=== PATIENT | male | born 1960 | race Caucasian/White ===

== ENCOUNTER 2022-02-20 17:00 | Emergency (ER) | payer OTHER, SELFPAY ==
[2022-02-20] VITALS (10 sets, daily range): BP systolic 119–148; BP diastolic 89–109; PULSE 60–72; RESP 13–16; TEMP 36.4; O2SAT 93–95; BMI 36.5
--- NOTE | 2022-02-20 17:48 | CRLHL7_ITS ---
For Patients: As a result of the Century Cures Act, medical imaging exams and procedure reports are released immediately into your electronic medical record. You may view this report before your referring provider. If you have questions, please contact your health care provider. CHEST 1 VIEW INDICATION: Short of breath IMPRESSION: Overpenetrated athletic monitor leads present. Normal heart size and vascular pattern. Lungs are clear of focal opacities. No pneumothorax or pleural abnormality. Dictated by Donald Chavira MD @ 02/20/2022 6:37:51 PM (Electronically Signed)
[2022-02-20 17:59] LABS: Basophils Absolute Auto 0.05 K/uL (0.00-0.30); Basophils Percent Auto 0.7 % (0.0-3.0); Eosinophils Absolute Auto 0.11 K/uL (0.00-0.50); Eosinophils Percent Auto 1.5 % (0.0-7.0); Hemoglobin* 16.4 gm/dL (13.5-17.5); Immature Granulocytes Abs Auto 0.01 K/uL (0.00-0.30); Lymphocytes Absolute Auto 1.68 K/uL (0.90-2.90); Lymphocytes Percent Auto 22.7 % (20-44); Mean Corpuscular HGB Conc 35 gm/dL (32-36); Mean Corpuscular Hemoglobin 30 pg (26-34); Mean Corpuscular Volume 87 fL (80-100); Monocytes Percent Auto 7.8 % (0.0-11.0); Neutrophils Absolute Auto 4.97 K/uL (1.7-7.0); Neutrophils Percent Auto 67.2 % (42.0-72.0); Platelet Count* 190 K/uL (140-440); RDW Coefficient of Variation % 12.5 % (11.5-15.5); Red Blood Count 5.42 m/uL (4.30-5.90)
[2022-02-20 18:02] LABS: Slide Review Reflex No
--- NOTE | 2022-02-20 18:03 | ED.GENADULT ---
HPI - General Adult General Date Seen: 02/20/22 Chief complaint: Unspecified Complaint, Pediatric Stated complaint: Tightness in chest, shortness of breath Time Seen by Provider: 02/20/22 17:07 Source: patient History of Present Illness HPI narrative: Patient is a 61-year-old male who presents for evaluation of shortness of breath and chest tightness. 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 Throughout the day today, he feels that whenever he tries to exert himself, he is getting short of breath, fatigued and having some tightness across his upper abdomen/lower chest. He says if he sits down, these symptoms will go away within about 1/2 hour or so. Says yesterday he was having some stomach discomfort but he was really gassy and burping/passing a lot of gas, he is so he felt that was more related to stomach problems. Over the past couple of weeks, he does feel like at work when he goes light of stairs he is more short of breath than usual. He can kind of feel his heart pounding in his chest, but he has not had any chest tightness that he can recall. He has not had any fevers or cough. He did have knee surgery back in November, and has had some pain related to that, but has not had any unusual leg pain or swelling otherwise. Has not had any pleuritic chest pain. Does not have any heart disease history that he knows of. No history of DVT or PE. No family history of early coronary artery disease. He does not smoke. Drinks occasionally. Here today with his . Related Data Home Medications Medication Instructions Recorded Confirmed atorvastatin 20 mg tablet 20 mg PO DAILY 02/20/22 02/20/22 cetirizine 10 mg capsule (All Day 10 mg PO DAILY PRN 02/20/22 02/20/22 Allergy (cetirizine)) gabapentin 300 mg capsule 300 mg PO DAILY 02/20/22 02/20/22 losartan 50 mg tablet 50 mg PO DAILY 02/20/22 02/20/22 omeprazole 20 mg capsule,delayed 20 mg PO DAILY 02/20/22 02/20/22 release Allergies Allergy/AdvReac Type Severity Reaction Status Date / Time methotrexate Allergy Rash Verified 02/20/22 17:19 ceriatain Allergy Uncoded 02/20/22 17:19 Review of Systems Status of ROS: Reports: 10 or more systems reviewed and unremarkable except as noted in History and below [facility] Social History Smoking Status: Never smoker Do you use any of these nicotine containing products: None Second hand tobacco smoke exposure: No How often do you have a drink containing alcohol: 4 or more times a week How many standard drinks containing alcohol do you have on a typical day: 1 or 2 How often do you have six or more drinks on one occasion: Never AUDIT-C Alcohol total score: 4 Non-prescribed substance use: denies use Exam Narrative: Exam Narrative: Vital signs as noted above. In general, an alert, well-appearing patient. Head: Normocephalic, atraumatic. Eyes: Pupils are equal reactive. Extraocular movements are full. Conjunctivae are normal. ENT: Mucous membranes are moist. Throat is normal. Neck: Supple without lymphadenopathy. Heart: Regular rate and rhythm. No murmur or rub. Lungs: Clear bilaterally. No increased work of breathing, crackles or wheezes. Abdomen: Soft and nontender. No organomegaly. Extremities: Well perfused. No peripheral edema. No calf tenderness. Pulses intact. Slight amount of edema around the left knee, no erythema or tenderness. Neurologic: Patient is alert and oriented to person and place. Speech is fluent. Face is symmetric. Moves all extremities equally. Affect: Normal. Skin: Warm and dry. Well perfused. Const: Vital Signs, click to edit/add: Vital Signs - 24 hr 02/20/22 17:13 02/20/22 17:20 02/20/22 17:30 Temperature 97.6 F Pulse Rate [Right Pulse Oximeter] 72 69 Respiratory Rate 16 13 Blood Pressure [Ri ght Upper Arm] 125/96 H 127/95 H Pulse Oximetry 94 94 93 Oxygen Delivery Me thod Room Air 02/20/22 18:00 02/20/22 18:30 02/20/22 19:00 Temperature Pulse Rate [Right Pulse Oximeter] 68 67 67 Respiratory Rate 14 16 13 Blood Pressure [Ri ght Upper Arm] 135/89 136/92 H 125/94 H Pulse Oximetry 93 94 94 Oxygen Delivery Me thod Room Air Room Air Room Air Documenting provider has reviewed patient's vital signs: yes Course Course Hospital Course: On arrival, patient had an EKG which showed a normal sinus rhythm, ventricular rate of 70. Incomplete right bundle branch block, criteria for left ventricular hypertrophy. No acute ST segment changes by my review. History certainly raises the possibility of angina with exertional chest tightness and shortness of breath. Risk factors include high blood pressure and high cholesterol. He is given an aspirin here. Labs are ordered. Currently he is symptom free. Patient's labs are all normal here. Chest x-ray is likewise normal by my review, final radiology report is negative as well. He has been free of any symptoms while here. Troponin at time 0 and 2 hours are negative. His heart score is 4, if I consider his history is highly suspicious. I have discussed both the utility of troponins as well as the heart score with the patient and his . He is here on a Tuesday, thus admitting him to the hospital would not result in specific action in terms of working him up over the next 24 hours as we do not have stress test available here until Tuesday. I have made phone calls for another patient and happen to know that there are no beds available in the [facility] [place] for transfer. I think given that he is very reliable, has been pain-free while here, has a normal EKG and 2- troponins make it reasonable to get a 6 hour troponin if that is negative to discharge him home with early stress testing. He and his were comfortable with that plan as well. 6 hour troponin is pending at this time. 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 He is aware that if at any time he has worsening or persistent symptoms he should return by 911. He should take it easy until his stress test. He should take it aspirin daily. I have asked Dr. Liu to follow up on the final troponin and patient will be discharged assuming that is likewise negative. Vital Signs Vital signs: Initial Vital Signs Temperature 97.6 F 02/20/22 17:13 Temperature Source Temporal Artery Scan 02/20/22 17:13 Pulse Rate 72 02/20/22 17:13 Pulse Rhythm 02/20/22 17:13 Respiratory Rate 16 02/20/22 17:13 Blood Pressure 125/96 H 02/20/22 17:13 Blood Pressure Mean 105 02/20/22 17:13 Blood Pressure Position Supine 02/20/22 17:13 Pulse Oximetry 94 02/20/22 17:13 Oxygen Delivery Method 02/20/22 17:13 Vital Signs Temperature 97.6 F 02/20/22 17:13 Pulse Rate 72 02/20/22 17:13 Respiratory Rate 16 02/20/22 17:13 Blood Pressure 125/96 H 02/20/22 17:13 Pulse Oximetry 94 02/20/22 17:13 Oxygen Delivery Method 02/20/22 17:13 Temperature 97.6 F 02/20/22 17:13 Pulse Rate 67 02/20/22 19:00 Respiratory Rate 13 02/20/22 19:00 Blood Pressure 125/94 H 02/20/22 19:00 Pulse Oximetry 94 02/20/22 19:00 Oxygen Delivery Method 02/20/22 19:00 Medical Decision Making Lab Data Labs: Lab Results 02/20/22 02/20/22 02/20/22 Range/Units 17:40 17:40 17:40 WBC 7.40 (4.50-11.00) K/uL RBC 5.42 (4.30-5.90) m/uL Hgb 16.4 (13.5-17.5) gm/dL Hct 47.0 (37.0-53.0) % MCV 87 (80-100) fL MCH 30 (26-34) pg MCHC 35 (32-36) gm/dL RDW Coeff of Fernando 12.5 (11.5-15.5) % Plt Count 190 (140-440) K/uL Neut % (Auto) 67.2 (42.0-72.0) % Lymph % (Auto) 22.7 (20-44) % [place] % (Auto) 7.8 (0.0-11.0) % Eos % (Auto) 1.5 (0.0-7.0) % Baso % (Auto) 0.7 (0.0-3.0) % Neut # (Auto) 4.97 (1.7-7.0) K/uL Lymph # (Auto) 1.68 (0.90-2.90) K/uL [place] # (Auto) 0.60 (0.00-0.90) K/UL Eos # (Auto) 0.11 (0.00-0.50) K/uL Baso # (Auto) 0.05 (0.00-0.30) K/uL Abs Immat Gran (auto) 0.01 (0.00-0.30) K/uL D-Dimer Quant (PE/DVT) < 0.27 (0.00-0.50) ug/ml Sodium 139 (135-149) mmol/L Potassium 3.6 (3.6-5.1) mmol/L Chloride 106 (96-114) mmol/L Carbon Dioxide 23 (20-32) mmol/L BUN 27 (7-30) mg/dL Creatinine 1.0 (0.5-1.5) mg/dL Estimated Creat Clear 83.67 Estimated GFR 86 ml/min Glucose 103 (60-115) mg/dL Calcium 9.3 (8.4-10.6) mg/dL Total Bilirubin 1.4 (0.1-1.5) mg/dL Direct Bilirubin 0.4 (0.0-0.5) mg/dL AST 37 H (12-35) U/L ALT 42 (4-50) U/L Alkaline Phosphatase 89 (40-150) U/L C-Reactive Protein < 0.5 L (0.5-1.0) mg/dL NT-Pro-B Natriuret Pep 53 (0-125) PG/mL Total Protein 7.8 (6.0-8.3) g/dL Albumin 4.6 (3.3-5.0) g/dL Lipase 235 (23-300) U/L POC Troponin I (0.01-0.04) ng/ml 02/20/22 02/20/22 Range/Units 17:40 19:49 WBC (4.50-11.00) K/uL RBC (4.30-5.90) m/uL Hgb (13.5-17.5) gm/dL Hct (37.0-53.0) % MCV (80-100) fL MCH (26-34) pg MCHC (32-36) gm/dL RDW Coeff of Fernando (11.5-15.5) % Plt Count (140-440) K/uL Neut % (Auto) (42.0-72.0) % Lymph % (Auto) (20-44) % [place] % (Auto) (0.0-11.0) % Eos % (Auto) (0.0-7.0) % Baso % (Auto) (0.0-3.0) % Neut # (Auto) (1.7-7.0) K/uL Lymph # (Auto) (0.90-2.90) K/uL [place] # (Auto) (0.00-0.90) K/UL Eos # (Auto) (0.00-0.50) K/uL Baso # (Auto) (0.00-0.30) K/uL Abs Immat Gran (auto) (0.00-0.30) K/uL D-Dimer Quant (PE/DVT) (0.00-0.50) ug/ml Sodium (135-149) mmol/L Potassium (3.6-5.1) mmol/L Chloride (96-114) mmol/L Carbon Dioxide (20-32) mmol/L BUN (7-30) mg/dL Creatinine (0.5-1.5) mg/dL Estimated Creat Clear Estimated GFR ml/min Glucose (60-115) mg/dL Calcium (8.4-10.6) mg/dL Total Bilirubin (0.1-1.5) mg/dL Direct Bilirubin (0.0-0.5) mg/dL AST (12-35) U/L ALT (4-50) U/L Alkaline Phosphatase (40-150) U/L C-Reactive Protein (0.5-1.0) mg/dL NT-Pro-B Natriuret Pep (0-125) PG/mL Total Protein (6.0-8.3) g/dL Albumin (3.3-5.0) g/dL Lipase (23-300) U/L POC Troponin I 0.00 L 0.01 (0.01-0.04) ng/ml Discharge Plan Discharge Clinical Impression: Chest pain Patient Disposition: Home, Self-Care Condition: Stable Instructions: Chest Pain (ED) Additional Instructions: Aspirin 325 mg daily. Follow-up for stress test as discussed this week. Avoid exertion in the meantime. If you have any persistent or worsening symptoms, return immediately to the ER by 911. Prescriptions: No Action atorvastatin 20 mg tablet 20 mg PO DAILY Label Comments: Take 1 Tablet (20 mg) by mouth once daily. For Cholesterol. gabapentin 300 mg capsule 300 mg PO DAILY Label Comments: TAKE ONE CAPSULE BY MOUTH ONE TIME DAILY AT BEDTIME losartan 50 mg tablet 50 mg PO DAILY Label Comments: Take 1 Tablet (50 mg) by mouth once daily. omeprazole 20 mg capsule,delayed release(DR/EC) 20 mg PO DAILY Label Comments: Take 1 Capsule (20 mg) by mouth once daily before a meal. All Day Allergy (cetirizine) 10 mg capsule 10 mg PO DAILY PRN Follow Up/Referrals: Orlando Segovia MD [Primary Care Provider] - Stand Alone Forms: [employer] Info Instructions
[2022-02-20] MEDS: ASPIRIN 81 MG TAB.CHEW 324 MG PO (18:07)
[2022-02-20 18:11] LABS: Albumin* 4.6 g/dL (3.3-5.0); Chloride* 106 mmol/L (96-114)
[2022-02-20 18:12] LABS: Potassium* 3.6 mmol/L (3.6-5.1); Sodium* 139 mmol/L (135-149)
[2022-02-20 18:14] LABS: Aspartate Amino Transferase* 37 U/L (12-35); Bilirubin Direct* 0.4 mg/dL (0.0-0.5); Bilirubin Total* 1.4 mg/dL (0.1-1.5); Carbon Dioxide* 23 mmol/L (20-32); Est. Creatinine Clearance* 83.67; Estimated Glomerular Filt Rate 86 ml/min; Total Protein* 7.8 g/dL (6.0-8.3)
[2022-02-20 18:15] LABS: Alanine Aminotransferase* 42 U/L (4-50); Alkaline Phosphatase* 89 U/L (40-150); Blood Urea Nitrogen* 27 mg/dL (7-30); Calcium* 9.3 mg/dL (8.4-10.6); Glucose* 103 mg/dL (60-115); Lipase* 235 U/L (23-300)
[2022-02-20 18:17] LABS: D Dimer Quantitative* < 0.27 ug/ml (0.00-0.50)
[2022-02-20 18:23] LABS: NT Pro B Type NatriureticPept* 53 PG/mL (0-125)
[2022-02-20 18:52] LABS: C Reactive Protein* < 0.5 mg/dL (0.5-1.0)
[2022-02-20 20:12] LABS: Troponin, Point-of-Care* 0.01 ng/ml (0.01-0.04)
[2022-02-21] VITALS: BP 136/101; PULSE 60; RESP 16; O2SAT 93
--- NOTE | 2022-02-21 00:28 | ED.NURSE ---
3rd trop 0.00
== END 2022-02-21 00:24 | disposition home or self-care (01) ==
PROVIDERS: Emergency Provider Emergency Medicine; PCP Family Medicine
DX: R07.9 Chest pain, unspecified (principal)
CPT/HCPCS: 36415; 71045; 80048; 80076; 83690; 83880; 84484; 85025; 85379; 86140; 93005; 94761; 99284; 99285; A9270

== ENCOUNTER 2022-02-23 13:47 | Outpatient (CLI) | payer OTHER, SELFPAY ==
[2022-02-23 15:07] VITALS: BP 126/80; PULSE 70; RESP 18
[2022-02-23] MEDS: PERFLUTREN LIPID MICROSPHERES 2 ML VIAL IV (15:09)
--- NOTE | 2022-02-23 16:03 | PM.ST ---
Stress Test Note Date Date Seen: 02/23/22 Date of test: 02/23/22 Providers Referring provider: Mitzi Porter Primary care provider: Orlando Segovia Stress test physician: Cole Edouard Stress Test Note Stress test ordered: Stress Echo Indication for test: Chest pain Stress test medicine: Definity Results discussion: This pleasant gentleman presents for the above test after discussion the risks benefits and side effects and reviewing the cardiac stress test medical history form he would like to proceed pretest EKG shows normal sinus rhythm, with the incomplete right bundle branch block configuration, and a ventricular rate of 61 and rhythm is sinus. Blood pressure is 134/85. Standard David protocol is employed for a time course of 9 minutes and 2nd, he achieved a metabolic equivalent of 10.5, with a maximum heart rate of 143. There is no chest pain during this test, and test was terminated because of fulfillment of protocol. Review of the tracing showed no dysrhythmias, there is no ST wave changes suggestive of ischemia, any otherwise recovered normally Impression: Negative electrographic portion of stress echo Follow up suggested: Await echo images these will be read by Cardiology clinical correlation will be needed patient left this testing facility in good condition.
== END 2022-02-23 16:00 | disposition home or self-care (01) ==
PROVIDERS: PCP Family Medicine; Visit Provider Family Medicine
DX: R07.89 Other chest pain (principal)
CPT/HCPCS: 93016; 93325; 93351; Q9957